=== PATIENT | female | born 1970 | race Caucasian/White ===

== ENCOUNTER 2024-08-04 12:09 | Emergency (ER) | payer OTHER, SELFPAY ==
--- NOTE | 2024-08-04 12:16 | ED.GENADULT ---
HPI - General Adult General Chief complaint: Abdominal Pain Stated complaint: vomiting Time Seen by Provider: 08/04/24 12:16 Source: patient and RN notes reviewed Mode of arrival: Ambulatory Limitations: no limitations History of Present Illness HPI narrative: 54-year-old female no reported medical issues patient presents with complaint of vomiting that started yesterday and developed right-sided abdominal pain today. States it is more in the front, denies any back or flank pain. No fevers, she had nausea and vomiting throughout the day yesterday had some Zofran last night and has had continued vomiting today. She states pain started today she did not appreciate a yesterday. Has not been changing location. Denies any dysuria, urgency frequency or hematuria. States no black or bloody stools no changes to bowel movements. States no vaginal bleeding. States she had not be . She states no daily medications. Had prior shoulder surgery in the past no prior intra-abdominal surgeries reported. No regular tobacco, alcohol or recreational drugs. Patient does note that recently on acyclovir as well as lysine and higher doses. Related Data Previous Rx's Medication Instructions Recorded ciprofloxacin HCl 500 mg tablet 500 mg PO BID #20 tabs 08/04/24 ondansetron 4 mg disintegrating 4 mg PO Q6H PRN nausea and 08/04/24 tablet vomiting #10 tabs oxycodone 5 mg tablet 5 mg PO Q6H PRN pain #10 tabs 08/04/24 tamsulosin 0.4 mg capsule (Flomax) 0.4 mg PO BEDTIME #7 caps 08/04/24 Allergies Allergy/AdvReac Type Severity Reaction Status Date / Time No Known Drug Allergies Allergy Verified 08/04/24 12:35 Review of Systems Review of Systems ROS Unobtainable: All systems reviewed & are unremarkable except as noted in HPI and below Patient History Social History Smoking Status: Never smoker Exam Narrative Exam Narrative: GENERAL: Alert and oriented x three, female in moderate distress. HEENT: Head normocephalic, atraumatic, EOMI, pupils reactive, face symmetric, moist mucous membranes NECK: Supple, full range of motion CARDIOVASCULAR: Regular rate and rhythm without murmurs, rubs or gallops. RESPIRATORY: Breath sounds equal bilaterally, no wheezes rales or rhonchi. ABDOMEN: Soft, positive for right lower quadrant tenderness. Normoactive bowel sounds all 4 quadrants. No guarding or rebound, rigidity, no mass, nondistended. : No CVA tenderness EXTREMITIES: Normal range of motion, no clubbing or edema. Neurovascularly intact NEUROLOGICAL: Cranial nerves II through XII grossly intact. Moving all extremities SKIN: Warm, dry, no petechiae, no rashes or lesions. Initial Vital Signs Initial Vital Signs: Vital Signs Temperature 98.1 F 08/04/24 12:27 Pulse Rate 82 08/04/24 12:27 Respiratory Rate 28 H 08/04/24 12:27 Blood Pressure 143/71 H 08/04/24 12:27 Pulse Oximetry 97 08/04/24 12:27 Oxygen Delivery Method Room Air 08/04/24 12:27 Course Orders Ordered: ED Orders 08/04/24 12:16 CT abdomen pelvis w con Stat 08/04/24 12:22 Complete Blood Count AUTO DIFF Stat Comprehensive Metabolic Panel Stat Lipase Stat 08/04/24 12:40 Urinalysis and Microscopic Stat Urine Culture Stat Discontinued Medications Sodium Chloride (Normal Saline 0.9%) 1,000 mls @ 1,000 mls/hr IV BOLUS ONE Stop: 08/04/24 13:15 Last Infusion: 08/04/24 13:45 Dose: Infused Documented By: Admin: 08/04/24 12:35 Dose: 1,000 mls/hr Documented By: JOSETTE Acetaminophen (Ofirmev) 1,000 mg in 100 mls @ 400 mls/hr IV NOW ONE Stop: 08/04/24 13:11 Last Infusion: 08/04/24 13:33 Dose: Infused Documented By: Admin: 08/04/24 13:01 Dose: 400 mls/hr Documented By: JOSETTE Ceftriaxone Sodium 1,000 mg/ (Sodium Chloride) 100 mls @ 200 mls/hr IV NOW ONE Stop: 08/04/24 13:57 Last Infusion: 08/04/24 14:49 Dose: Infused Documented By: Admin: 08/04/24 14:04 Dose: 200 mls/hr Documented By: JOSETTE Ketorolac Tromethamine (Ketorolac 30 Mg/Ml Vial) 15 mg IV NOW ONE Stop: 08/04/24 12:17 Last Admin: 08/04/24 12:35 Dose: 15 mg Documented By: JOSETTE Metoclopramide HCl (Metoclopramide 10 Mg/2 Ml Inj) 10 mg IV NOW ONE Stop: 08/04/24 13:30 Last Admin: 08/04/24 13:31 Dose: 10 mg Documented By: JOSETTE Ondansetron HCl (Ondansetron 4 Mg/2 Ml Inj) 4 mg IV NOW ONE Stop: 08/04/24 12:17 Last Admin: 08/04/24 12:37 Dose: 4 mg Documented By: JOSETTE Tamsulosin HCl (Tamsulosin 0.4 Mg Capsule) 0.4 mg PO NOW ONE Stop: 08/04/24 13:50 Last Admin: 08/04/24 13:51 Dose: 0.4 mg Documented By: JOSETTE Vital Signs Vital signs: Vital Signs - 8 hr 08/04/24 12:27 08/04/24 14:10 08/04/24 14:50 Temperature 98.1 F 98.6 F Pulse Rate 82 61 77 Respiratory Rate 28 H 20 Blood Pressure 143/71 H 141/69 H Pulse Oximetry 97 98 100 Oxygen Delivery Method Room Air Room Air Room Air Medical Decision Making Lab Data 08/04/24 12:22 08/04/24 12:22 Labs: Lab Results 08/04/24 08/04/24 Range/Units 12:22 12:40 WBC 7.8 (4.5-11.0) X10^3/uL RBC 4.26 (4.0-5.2) X10^6/uL Hgb 13.6 (12.0-16.0) g/dL Hct 41.0 (36-46) % MCV 96.3 (80-100) fL MCH 31.9 (26-34) PG MCHC 33.2 (30-36) % RDW 13.4 (11.6-14.8) % Plt Count 309 (150-400) X10^3/uL Neut % (Auto) 61.8 (50-75) % Lymph % (Auto) 26.4 (25-40) % [place] % (Auto) 9.7 (3-14) % Eos % (Auto) 1.4 L (2-4) % Baso % (Auto) 0.7 (0-2) % Neut # (Auto) 4800 (2018-3762) /uL Lymph # (Auto) 2100 (1194-5480) /uL [place] # (Auto) 800 (0-900) /uL Eos # (Auto) 100 (0-450) /uL Baso # (Auto) 100 (0-100) /uL Sodium 139 (137-145) mmol/L Potassium 3.6 (3.4-5.1) mmol/L Chloride 105 (98-107) mmol/L Carbon Dioxide 24 (22-32) mmol/L BUN 14 (7-17) mg/dL Creatinine 0.91 (0.52-1.04) mg/dL Estimated GFR > 60 (>60) mL/min BUN/Creatinine Ratio 15.4 (6-22) Glucose 128 H (70-100) mg/dL Calcium 9.7 (8.4-10.2) mg/dL Total Bilirubin 0.6 (0.2-1.3) mg/dL AST 28 (14-36) IU/L ALT 28 (<35) IU/L Alkaline Phosphatase 76 (38-126) U/L Total Protein 7.5 (6.3-8.2) g/dL Albumin 4.5 (3.5-5.0) g/dL Globulin 3.0 (1.7-4.1) g/dL Albumin/Globulin Ratio 1.5 (1.0-2.8) Lipase 51 (23-300) U/L Urine Color Yellow Urine Appearance Clear Urine pH 5.5 (4.5-8.0) Ur Specific [place] 1.025 (1.000-1.035) Urine Protein Negative (Negative) Urine Glucose (UA) Negative (Negative) g/dL Urine Ketones Negative (NEGATIVE) Urine Occult Blood 1+ H (Negative) Urine Nitrate Negative (Negative) Urine Bilirubin Negative (NEGATIVE) Urine Urobilinogen 0.2 (0.2) E.U./dL Ur Leukocyte Esterase Negative (NEGATIVE) Urine RBC 10-30/hpf H (0-5/HPF) Urine WBC 1-5/hpf (0-5/HPF) Ur Squamous Epith Cells 0-1 /hpf (0-5/HPF) Amorphous Sediment 1+ Urine Bacteria Moderate (10-30) H (None) Urine Mucus 2+ H (Negative) Ur Culture Indicated? Specimen cultured Vol Urine Centrifuged 10ml (spun) Imaging Data CT scan - abdomen/pelvis: Radiologist's Impression: Close Abdomen/Pelvis CT (Signed) Angel Guerrier - 08/04/24 Launch?[address] [address] [address] Scan Report Signed Patient: Arabella Crow MR#: [id number] : 1970 Acct:[id number] Age/Sex: 54 / F Date of Service: 08/04/24 Loc: ED Accession Number: [id number] Procedure: CT abdomen pelvis w con Ordering Provider: Kianna Harrell D.O. PROCEDURE: CT ABDOMEN PELVIS W CON INDICATIONS: RLQ pain x1 day, vomiting x 2 days, stone vs appy ? TECHNIQUE: After the administration of intravenous contrast, axial sections acquired from the lung bases to the pubic symphysis. Coronal and sagittal reformats were performed. For radiation dose reduction, the following was used: automated exposure control, adjustment of mA and/or kV according to patient size. COMPARISON: None. FINDINGS: Image quality: Diagnostic. Lower Chest: No significant findings. ABDOMEN: Liver: No solid mass. Gallbladder: No radiopaque gallstones or wall thickening. Biliary ducts: No biliary dilation. Pancreas: No ductal dilation. Spleen: Size is within normal limits. Adrenal Glands: No adrenal nodules. Kidneys and Ureters: Obstructing 2 mm stone in the distal right ureter, resulting in moderate hydronephrosis and hydroureter, and a delayed right-sided nephrogram. Stomach and Bowel: Normal colonic caliber, without significant wall thickening. Normal appendix. No significant diverticular disease. Peritoneum: No abnormal intraperitoneal fluid. No free air. Ventral Wall: Small umbilical hernia containing fat. Abdominal Nodes: No retroperitoneal or mesenteric adenopathy by size criteria. Vessels: Aorta and inferior vena cava are normal in size. PELVIS: Pelvic Organs: Unremarkable. Bladder: No bladder wall thickening, accounting for underdistention. Submucosal fat deposition within the urinary bladder wall. Pelvic Nodes: No enlarged lymph nodes. Miscellaneous: No inguinal hernias are seen. Bones: No aggressive osseous abnormality. IMPRESSION: Obstructing 2 mm stone in the distal right ureter, resulting in moderate hydronephrosis and delayed nephrogram. Submucosal fat deposition of the urinary bladder wall, consistent with chronic infectious or inflammatory change. Dictated by: Angel Guerrier M.D. on 08/04/2024 at 13:35 Approved by: Angel Guerrier M.D. on 08/04/2024 at 13:37 MDM Narrative Medical decision making narrative: 54-year-old female with nausea vomiting that started yesterday and developed right lower quadrant pain today, patient appears quite uncomfortable. She does not appreciate any flank pain. Suspect kidney stone versus appendicitis versus pyelonephritis as most likely sources of symptoms. Patient states no prior intra-abdominal surgeries. She states she has been afebrile, he is tender to touch on exam but with persistent vomiting kidney stone also seems to be on differential. Labs show normal white count, hemoglobin and platelets. Electrolytes are otherwise normal renal function is normal the creatinine 0.91 glucose is 128 LFTs are negative. Urine shows 1+ occult blood, 10-30 RBCs 1-5 WBCs 1 squamous moderate bacteria specimen was sent for culture. CT abdomen pelvis obtained to rule out appendicitis versus kidney stone versus other. Obstructing 2 mm stone distal right ureter resulting in moderate hydro and hydroureter delayed right-sided nephrogram. Normal appendix. No fluid. Submucosal fat deposition of the urinary bladder wall consistent with a chronic infectious or inflammatory change. Patient received fluids, Toradol and Zofran. Patient has not had any Zofran today. Patient had some improvement in pain but still uncomfortable. Was given a dose of IV Tylenol on additional dose of Reglan for nausea. She notes she would like to try to avoid narcotics. Patient appears to have kidney stone no signs of appendicitis, urine possible infection after discussion we will start antibiotics. Patient is feeling improved. Plan for discharge home with Flomax, antibiotics and short course of pain medication. Discussed return precautions. Discharge Plan Departure Patient Disposition: Home Clinical Impression: Kidney stone on right side Instructions: DI for Kidney Stones Activity Restrictions/Additional Instructions: Follow up in the next several days if your symptoms are not resolving. Contacts included below for local Urology. If you wish you can collect the stone with a strainer and have it analyzed. Take Flomax once daily until gone. Take oral antibiotics until completed. You can take ondansetron 1 tablet every 6 hours as needed for nausea. You can take acetaminophen up to a 1000 mg every 6 hours and/or ibuprofen up to 600 mg every 6 hours as needed for pain. If inadequate pain you can take oxycodone 1-2 tablets every 6 hours as needed. This medication can make you sleepy do not drive, perform hazardous activities or make any major decisions while taking it. This medication will make you constipated please take a stool softener once to twice daily until stools are soft and regular. Prescription sent to [facility] in [place]. Please return for fevers, rapidly worsening abdominal back or flank pain, persistent vomiting, lightheadedness or passing out, inability urinate, black or bloody stools or other new or concerning changes. Prescriptions: New ondansetron 4 mg tablet,disintegrating 4 mg PO Q6H PRN (Reason: nausea and vomiting) Qty: 10 0RF tamsulosin [Flomax] 0.4 mg capsule 0.4 mg PO BEDTIME Qty: 7 0RF oxycodone 5 mg tablet 5 mg PO Q6H PRN (Reason: pain) Qty: 10 0RF ciprofloxacin HCl 500 mg tablet 500 mg PO BID Qty: 20 0RF Referrals: Phillip Schuler DO [Physician] - Stand Alone Forms: Patient Portal/API
[2024-08-04 12:27] VITALS: BP 143/71; PULSE 82; RESP 28; TEMP 36.7; O2SAT 97; BMI 31.6
--- NOTE | 2024-08-04 12:30 | PC.NURSE ---
Patient stated the only new changes are: she has been taking valcylcovir for hsv outbreak and fished that yesterday and also has taken 3 days of 4g lysine/ per day. she was able to keep water down yesterday with zofran but hasnt had much stool or food for 48 hours. currently nauseated and vomiting.
[2024-08-04 12:33] LABS: Add Manual Diff / Slide Review NO; Basophils Absolute Auto 100 /uL (0-100); Basophils Percent Auto 0.7 % (0-2); Eosinophils Absolute Auto 100 /uL (0-450); Eosinophils Percent Auto 1.4 % (2-4); Hemoglobin 13.6 g/dL (12.0-16.0); Lymphocytes Absolute Auto 2100 /uL (1100-4500); Lymphocytes Percent Auto 26.4 % (25-40); Mean Corpuscular HGB Conc 33.2 % (30-36); Mean Corpuscular Hemoglobin 31.9 PG (26-34); Mean Corpuscular Volume 96.3 fL (80-100); Monocytes Absolute Auto 800 /uL (0-900); Monocytes Percent Auto 9.7 % (3-14); Neutrophils Absolute Auto 4800 /uL (1500-7000); Neutrophils Percent Auto 61.8 % (50-75); Platelet Count 309 X10^3/uL (150-400); Red Blood Cell Count 4.26 X10^6/uL (4.0-5.2); Red Cell Distribution Width 13.4 % (11.6-14.8); White Blood Cell Count 7.8 X10^3/uL (4.5-11.0)
[2024-08-04] MEDS: SODIUM CHLORIDE 0.9% 1,000 ML 1000 ML IV (12:35)
[2024-08-04] MEDS: KETOROLAC 30 MG/ML VIAL 15 MG IV (12:35)
[2024-08-04] MEDS: ONDANSETRON 4 MG/2 ML INJ IV (12:37)
[2024-08-04 12:49] LABS: Appearance Urine UA CLEAR; Bilirubin Urine UA NEGATIVE (NEGATIVE); Color Urine UA YELLOW; Glucose Urine UA NEGATIVE (Negative); Ketones Urine UA NEGATIVE (NEGATIVE); Leukocyte Esterase Urine UA NEGATIVE (NEGATIVE); Nitrite Urine UA NEGATIVE (Negative); Occult Blood Urine UA 1+ (Negative); Protein Urine UA NEGATIVE (Negative); Specific Gravity Urine UA 1.025 (1.000-1.035); Urobilinogen Urine UA 0.2 E.U./dL (0.2)
[2024-08-04 12:51] LABS: pH Urine UA 5.5 (4.5-8.0)
[2024-08-04 13:00] LABS: Alanine Aminotransferase 28 IU/L (<35); Albumin 4.5 g/dL (3.5-5.0); Albumin Globulin Ratio 1.5 (1.0-2.8); Alkaline Phosphatase 76 U/L (38-126); Aspartate Aminotransferase 28 IU/L (14-36); BUN Creatinine Ratio 15.4 (6-22); Bilirubin Total 0.6 mg/dL (0.2-1.3); Blood Urea Nitrogen 14 mg/dL (7-17); Calcium 9.7 mg/dL (8.4-10.2); Carbon Dioxide 24 mmol/L (22-32); Chloride 105 mmol/L (98-107); Estimated Glomerular Filt Rate > 60 mL/min (>60); Glucose 128 mg/dL (70-100); HEMOLYSIS < 15 (0-50); Lipase 51 U/L (23-300); Potassium 3.6 mmol/L (3.4-5.1); Sodium 139 mmol/L (137-145); Total Protein 7.5 g/dL (6.3-8.2)
[2024-08-04] MEDS: ACETAMINOPHEN IV 1,000 MG/100 ML VIAL 400 MG IV (13:01)
[2024-08-04 13:02] LABS: Amorphous Sediment Urine 1+; Bacteria Urine Moderate (10-30); Culture Indicated Urine Specimen Cultured; Mucus Urine 2+ (Negative); RBC Urine 10-30/HPF (0-5/HPF); Squamous Epithelial Cell Urine 0-1 /HPF (0-5/HPF); Urine Volume 10mL (spun); WBC Urine 1-5/HPF (0-5/HPF)
[2024-08-04] MEDS: METOCLOPRAMIDE 10 MG/2 ML INJ IV (13:31)
[2024-08-04] MEDS: TAMSULOSIN 0.4 MG CAPSULE PO (13:51)
[2024-08-04] MEDS: cefTRIAXone 1,000 MG in SODIUM CHLORIDE 0.9% 100 ML 200 MG IV (14:04)
[2024-08-04 14:10] VITALS: PULSE 61; O2SAT 98
[2024-08-04 14:50] VITALS: BP 141/69; PULSE 77; RESP 20; TEMP 37; O2SAT 100
== END 2024-08-04 14:50 | disposition home or self-care (01) ==
PROVIDERS: Emergency Provider Emergency Medicine
DX: N20.0 Calculus of kidney (principal); R11.10 Vomiting, unspecified
CPT/HCPCS: 36415; 74177; 80053; 81001; 83690; 85025; 87086; 96361; 96365; 96367; 96375; 99284; J0136; J0696; J1885; J2405; J2765; Q9967